=== PATIENT | female | born 1965 | race Caucasian/White ===

== ENCOUNTER 2019-05-31 10:52 | Emergency (ER) | payer OTHER ==
[~2019-05-31] VITALS: Ht 167.6 cm; Wt 208.7 kg
[~2019-05-31 10:52] MED LIST: ACETAMINOPHEN325 M1 PO; ACTOS 45 MG45 M1 PO; ALBUTEROL2.5 MG/0.1 IH; ALBUTEROL2.5 MG/31 INH; ASA5UEC PO; ASMANEX0.24 G1 IH; ATENOLOL 50MG T50 M1 PO; ATIVAN0.5 MG PO; AVELOX 400 MG400 MG PO; AVELOX400 MG PO; COSOPT EYE DROPS5 ML OP; COSOPT EYE DROPS5 ML OPHTHALMIC; CYMBALTA60 MG PO; DILTIAZEM 24HR180 MG PO; DOXYCYCLINE 10100 M1 PO; DUONEB 2.5-0.5 M3 ML IH; FLECAINIDE ACE150 MG PO; FLECAINIDE ACET50 M1 PO; FLEXERIL PO; FUROSEMIDE 40 M40 M1 PO; HYDROCHLOROTHIA25 M1 PO; HYDROCODON-ACE1 EAC7 PO; IBUPROFEN 400400 M1 PO; JANUVIA100 MG PO; LASIX 20 MG TAB20 MG PO; LEVAQUIN PO; LORTAB 5 MG/5001 TA1 PO; LOTRISONE CREAM15 GM TP; LOVAZA1000 MG PO; NEURONTIN 300300 M1 PO; NICODERM CQ1 EAC1 TD; NICODERM CQ1 EAC1 TRANSDERM; NICOTINE TRANSD21 M1 TD; PACERONE 200 M200 M1 PO; PHENERGAN-CODE120 ML PO; POTASSIUM20 PO; PRED FORTE 1% EY5 M1 OP; PROTONIX40 M2 PO; SAVELLA50 MG PO; SIMVASTATIN40 MG PO; SPIRIVA INH; TAMBOCOR 50 MG50 MG PO; TOPROL XL50 MG PO; TRAZODONE 150150 M1 PO; TRILIPIX135 MG PO; XARELTO10 M1 PO; XARELTO20 MG PO; XOPENEX HF1 UDINHALE INH; ZYRTEC10 M2 PO
[2019-05-31] MEDS ORDERED: NORCO 7.5-3251 EACH PO (14:35)
[2019-05-31] MEDS ORDERED: SENNA-DOCUSATE1 EAC1 PO (14:35)
[2019-05-31 14:45] VITALS: BP 139/58
== END 2019-05-31 14:45 | disposition home or self-care (01) ==
LOC: ER 10:52
DX: S42.254A Nondisplaced fracture of greater tuberosity of right humerus, initial encounter for closed fracture (principal); G47.30 Sleep apnea, unspecified; E66.09 Other obesity due to excess calories; F17.210 Nicotine dependence, cigarettes, uncomplicated; Z95.0 Presence of cardiac pacemaker; Z88.6 Allergy status to analgesic agent; Z90.710 Acquired absence of both cervix and uterus; Z88.1 Allergy status to other antibiotic agents; Z88.0 Allergy status to penicillin; Z88.2 Allergy status to sulfonamides; W19.XXXA Unspecified fall, initial encounter; Y93.89 Activity, other specified; Y92.89 Other specified places as the place of occurrence of the external cause; Y99.8 Other external cause status

== ENCOUNTER 2021-04-01 14:49 | Inpatient (IN) | payer OTHER ==
[~2021-04-01] VITALS: Ht 167.6 cm; Wt 152.0 kg
[2021-04-01 14:49] VITALS: BP 125/65
[~2021-04-01 14:49] MED LIST changes: +NORCO 7.5-3251 EACH PO; +SENNA-DOCUSATE1 EAC1 PO
[2021-04-01] MEDS ORDERED: ELIQUIS5 MG PO (16:27)
[2021-04-01 17:56] LABS: ABSOLUTE NEUTROPHILS 7.9 thou/uL (1.4-8.2); BASOPHILS 0.8 % (0.0-2.0); EOSINOPHILS 1.7 % (0.0-3.0); HEMOGLOBIN 17.6 gm/dL (12.0-15.0); LYMPHOCYTES 11.5 % (24.0-44.0); MCH 29.9 pg (26.0-34.0); MCHC 33.3 g/dL (28.0-37.0); MCV 89.7 fL (80.0-100.0); MONOCYTES 7.4 % (1.0-8.0); POLYS 78.6 % (36.0-66.0); RDW 15.5 % (10.5-14.5)
[2021-04-01 18:10] LABS: CALCIUM 8.7 mg/dL (8.5-10.1); CREATININE 0.8 mg/dL (0.6-1.0); POTASSIUM 3.8 mmol/L (3.5-5.1)
[2021-04-01 18:16] VITALS: BP 132/54
[2021-04-01 18:22] LABS: LARGE PLATELETS MANY; PLATELET COUNT 126 thou/uL (150-400)
[2021-04-01 19:47] VITALS: BP 135/72
[2021-04-01 20:37] VITALS: BP 101/53
[2021-04-01 21:04] VITALS: BP 133/106
--- NOTE | 2021-04-02 02:37 | NUR ---
PT ARRIVED ON UNIT FROM ER AT 2100. FELL AT HOME--COMPLAINING OF LEFT KNEE PAIN. WICK IN PLACE. [facility] PROVIDING PAIN RELIEF. RESTING COMFORTABLY. NO NEEDS VOICED. CALL LIGHT WITHIN REACH. FREQUENT OBSERVATION.
[2021-04-02 04:52] VITALS: BP 130/76
--- NOTE | 2021-04-02 09:45 | NUR ---
55-year-old female patient who presents with knee pain, after a fall/slide to the floor per anastasia. The knee buckled backwards and this was followed by extreme pain. The pain is mostly on the left knee but right knee also hurts. 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 DX:Left knee pain, possible patellar tendon tear. CT scan of the left knee to evaluate for a patellar tendon tear or any meniscal injury. Will follow after the scan per ortho. Cm visited with her at bedside. Lives at home with her son, She gets occasional help, but her son is not always home. She has [facility] a nurse 1 x week to set up medication and the 4hr a day for assist wit the house, bathing and other tasks around the house. Has cane and walker that she does not use. Has shower chair or takes a sponge bath. Does not drive. PCP Dr Elmore. Educaton on hh and skilled rehab. She requested referral be sent to [email or web address]. Referral sent. Will cont following as needed for dc needs.
[2021-04-02 10:27] VITALS: BP 132/69
[2021-04-02] MEDS ORDERED: TORSEMIDE20 MG PO (10:50)
[2021-04-02] MEDS ORDERED: SOTALOL160 MG PO (10:50)
[2021-04-02] MEDS ORDERED: OXYBUTYNIN 5 MG5 M1 PO (10:51)
[2021-04-02] MEDS ORDERED: KLOR-CON M2020 MEQ PO (10:52)
[2021-04-02] MEDS ORDERED: SAVELLA50 MG PO (10:53)
[2021-04-02] MEDS ORDERED: SERTRALINE HCL100 MG PO (10:53)
--- NOTE | 2021-04-02 11:05 | NUR ---
Assumed care of pt at 0700. Pt a&ox4. C/o left knee pain. Prn pain medications administered. Pt's medications reconcilled. Provider notified that home meds can be restarted at this discretion. Family at bedside. External catheter in place. Call light within reach. Fall precautions in place. Will continue to monitor.
[2021-04-02 15:13] VITALS: BP 144/64
--- NOTE | 2021-04-02 16:00 | NUR ---
PT TO CT SCAN TODAY. C/O KNEE PAIN. AFEBRILE, ADEQUATE UOP, NO BM, FAIR APPETITE. PT HAS BEEN UPDATED AND EDUCATED ON PT CONDITION AND POC. PT SLOWLY PROGRESSING TOWARDS POC.
[2021-04-02 19:49] VITALS: BP 154/94
[2021-04-02 23:45] VITALS: BP 129/66
--- NOTE | 2021-04-03 04:19 | NUR ---
ASSUMED CARE OF PT AT 1900. PT IS A/O X4 AND IS UP WITH ASSIST. PT IS ON 2 LITERS O2 PER NC. SOB WITH EXERTION. MEDSURG NO TELE. HR AND TEMPERATURE ELEVATED THIS NOC. CRITICAL CARE CLINICAL NURSE SPECIALIST NOTIFIED. ORDERS GIVEN. PT CURRENT TEMPERATURE IS AFEBRILE. PUREWICK IN PLACE AND DRAINING DARK YELLOW URINE. NO BM THIS SHIFT. PT C/O LEFT KNEE PAIN. PRN PAIN MEDICATION GIVEN DIRECTED. FIELD STICK IV REMOVED AND REPLACED. CURRENTLY SALINE LOCKED. FALL PRECAUTIONS IN PLACE, CALL LIGHT IS WITHIN REACH.
[2021-04-03 04:29] VITALS: BP 113/73
[2021-04-03 05:03] LABS: ABSOLUTE NEUTROPHILS 5.5 thou/uL (1.4-8.2); EOSINOPHILS 1.8 % (0.0-3.0); HEMATOCRIT 51.7 % (37.0-47.0); HEMOGLOBIN 16.9 gm/dL (12.0-15.0); LYMPHOCYTES 22.4 % (24.0-44.0); MCH 29.5 pg (26.0-34.0); MCHC 32.7 g/dL (28.0-37.0); MCV 90.4 fL (80.0-100.0); MONOCYTES 9.2 % (1.0-8.0); PLATELET COUNT 117 thou/uL (150-400); POLYS 65.6 % (36.0-66.0); RBC 5.72 mil/uL (4.20-5.00); RDW 15.7 % (10.5-14.5); WBC 8.4 thou/uL (4.0-11.0)
[2021-04-03 05:38] LABS: CREATININE 0.7 mg/dL (0.6-1.0); MAGNESIUM 2.1 mg/dL (1.8-2.4); POTASSIUM 3.8 mmol/L (3.5-5.1)
[2021-04-03 07:20] VITALS: BP 155/96
--- NOTE | 2021-04-03 14:19 | NUR ---
PT RESTING COMFORTABLY. PAIN WELL CONTROLLED. PT AFEBRILE, ADEQUATE UOP, NO BM, GOOD APPETITE. [facility] TO COME TO BEDSIDE TO FIT KNEE BRACE TODAY. PT HAS BEEN THOUROUGHLY UPDATED AND EDUCATED ON PT CONDITION AND POC. PT SLOWLY PROGRESSING TOWARDS POC.
[2021-04-03 16:44] VITALS: BP 131/83
--- NOTE | 2021-04-03 17:06 | NUR ---
[facility] liaison made a visit this afternoon to visit with anastasia. they can accept for skilled rehab when she is medical stable for dc per larissa . Will cont following as needed.
[2021-04-03 19:01] VITALS: BP 145/80
[2021-04-04 04:14] VITALS: BP 146/73
--- NOTE | 2021-04-04 04:44 | NUR ---
ASSUMED PT CARE THIS PM. PT IS ALERT AND ORIENTED X4. PT HAS A LEFT LEG BRACE IN PLACE. PT HAS EXTERNAL CATH IN PLACE. PT C/O PAIN WHICH WAS MANGED BY PRN PAIN MEDS. NEW PIV ACCESS WAS PLACED. PT IS ON 2L OF O2 VIA NC. NO OTHER CONCERN WAS VERBALIZED BY PT. FALL PRECAUTIONS IN PLACE. WILL CONTINUE TO MONITOR.
[2021-04-04 07:03] VITALS: BP 138/77
[2021-04-04] MEDS ORDERED: MIRALAX17 GM PO (12:58)
--- NOTE | 2021-04-04 13:47 | NUR ---
ASSUMED CARE OF PT AT 0900. REPORT RECIEVED, [place] ASSESSMENT COMPLETE. LLE IN IMMOBILIZER. PUREWICK IN PLACE. PT C/O L KNEE PAIN AND EXPERIENCING SEERE ANXIETY. MEDS GIVEN ACCORDINLY. L WRIST PIV CDI, PATENT, SECURED. REPOSITIONING FOR COMFORT. ALL NEEDS MET AT THIS TIME. HOURLY ROUNDING CONTINUING. CALL LIGHT IN REACH
--- NOTE | 2021-04-04 14:05 | NUR ---
[facility] for [facility]. CM passed on information to attending physician during los. Dc today. Chart copy requested. Bedside nurse to call report to [phone]. Wheel chair transportation with o2.
[2021-04-04 15:25] VITALS: BP 143/72
--- NOTE | 2021-04-04 16:03 | NUR ---
RE[facility]. DISCHARGE EDUCATION PROVIDED, PT VERBALIZED UNDERSTANDING. PACKET BEING SENT [facility] [employer]
== END 2021-04-04 17:28 | DRG 563 ==
LOC: ER 14:49 → 4S 18:20 → EROBS 18:20 → 4S 20:59
PROVIDERS: Emergency Medicine; Nurse Practitioner; ADMIT Hospitalist; ATTEND Hospitalist
DX: S83.522A Sprain of posterior cruciate ligament of left knee, initial encounter (principal); S82.112A Displaced fracture of left tibial spine, initial encounter for closed fracture; I48.20 Chronic atrial fibrillation, unspecified; Z68.43 Body mass index [BMI] 50.0-59.9, adult; S82.832A Other fracture of upper and lower end of left fibula, initial encounter for closed fracture; H35.52 Pigmentary retinal dystrophy; J45.909 Unspecified asthma, uncomplicated; E11.9 Type 2 diabetes mellitus without complications; E66.01 Morbid (severe) obesity due to excess calories; Z20.822 Contact with and (suspected) exposure to COVID-19; F17.210 Nicotine dependence, cigarettes, uncomplicated; I48.0 Paroxysmal atrial fibrillation; R53.81 Other malaise; Z97.10 Presence of artificial limb (complete) (partial), unspecified; Z90.710 Acquired absence of both cervix and uterus; Z90.49 Acquired absence of other specified parts of digestive tract; Z95.0 Presence of cardiac pacemaker; Z88.6 Allergy status to analgesic agent; Z88.0 Allergy status to penicillin; Z88.8 Allergy status to other drugs, medicaments and biological substances; W07.XXXA Fall from chair, initial encounter; Y93.89 Activity, other specified; Y92.89 Other specified places as the place of occurrence of the external cause; Y99.8 Other external cause status
CPT/HCPCS: 10195